=== PATIENT | male | born 1990 | race American Indian/Alaskan Native ===

== ENCOUNTER 2016-09-26 11:55 | Emergency (ER) | payer MEDICAID ==
[2016-09-26 12:20] VITALS: BP 133/86; PULSE 88; RESP 16; TEMP 99.1; O2SAT 100
--- NOTE | 2016-09-26 12:26 | ED PDOC ---
Arrival/HPI - General Chief Complaint: Male Genitourinary Time Seen by Provider: 09/26/16 12:15 Historian: Patient - History of Present Illness Narrative History of Present Illness (Text): 09/26/16 12:28 Elliott Castaneda is a 26 year old male who presents to the emergency department complaining of bleeding from superficial abrasion to the penis. Denies any pain to the area. Denies any pain/burning while urinating, discharge or testicular pain. Patient states he is not sexually active and has never had sex before in his entire life. He reports that this abrasion stops bleeding spontaneously but after he masturbates, it begins bleeding again. Denies any fever, chills, chest pain, or any other complaints at this time. Severity Level: Mild Activities at Onset: Light Past Medical History - Provider Review Nursing Documentation Reviewed: Yes - Neurological Hx Neurological Disorder: Yes Other/Comment: Brain Tumor - Hematological/Oncological Hx Cancer: Yes (Brain Tumor) Other/Comment: Brain tumor at age 12 - Psychiatric Hx Substance Use: No - Surgical History Other/Comment: Brain Tumor removal - Anesthesia Hx Anesthesia: Yes Family/Social History - Physician Review Nursing Documentation Reviewed: Yes Family/Social History: No Known Family HX Smoking Status: Never Smoked Hx Alcohol Use: No Hx Substance Use: No Allergies/Home Meds Allergies/Adverse Reactions: Allergies vincristine Allergy (Verified 09/26/16 12:10) RASH Home Medications: Home Meds Medication Instructions Recorded Confirmed No Known Home Med 09/26/16 09/26/16 Review of Systems - Physician Review All systems were reviewed & negative as marked: Yes - Review of Systems Constitutional: Normal. absent: Fatigue, Fevers Respiratory: Normal. absent: SOB, Cough Genitourinary Male: Other (superficial abrasion to penis ). absent: Dysuria, Frequency, Hematuria Neurological: Normal. absent: Headache, Dizziness Psychiatric: Normal Physical Exam - Physical Exam Narrative Physical Exam (Text): Constitutional: No acute distress. Head: Normocephalic. Atraumatic. Eyes: PERRL. ENT: Moist mucous membranes. Neck: Supple. Cardiovascular: Regular rate. Chest: No tenderness. Respiratory: Clear to auscultation bilaterally. GI: Soft. Nontender. Nondistended. Genitourinary: No testicular tenderness, no hernia, circumcised, no inguinal lymphadenopathy, superficial small wound to left meatus rim with no active bleeding. Back: No CVA tenderness. Musculoskeletal: No tenderness or swelling of extremities. Skin: No rash. Neurologic: Alert, no focal deficit. Vital Signs Reviewed: Yes Vital Signs Temp Pulse Resp BP Pulse Ox 09/26/16 12:20 99.1 F 88 16 133/86 100 Temperature: Afebrile Blood Pressure: Normal Pulse: Regular Respiratory Rate: Normal Appearance: Positive for: Well-Appearing, Non-Toxic, Comfortable Pain Distress: None Mental Status: Positive for: Alert and Oriented X 3 Medical Decision Making ED Course and Treatment: 09/26/16 12:35 Impression: A 26 year old male who presents to the emergency department complaining of bleeding from abrasion to penis. Progress Notes: Patient is stable for discharge. Advised to present to emergency department for new/worsening symptoms. - Scribe Statement The provider has reviewed the documentation as recorded by the Marcelleibe Jose Alberto Rueda Provider Scribe Attestation: All medical record entries made by the Scribe were at my direction and personally dictated by me. I have reviewed the chart and agree that the record accurately reflects my personal performance of the history, physical exam, medical decision making, and the department course for this patient. I have also personally directed, reviewed, and agree with the discharge instructions and disposition. Disposition/Present on Arrival - Present on Arrival Any Indicators Present on Arrival: No History of DVT/PE: No History of Uncontrolled Diabetes: No Urinary Catheter: No History of Decub. Ulcer: No History Surgical Site Infection Following: None - Disposition Have Diagnosis and Disposition been Completed?: Yes Diagnosis: Penis abrasion Disposition: HOME/ ROUTINE Disposition Time: 12:36 Condition: STABLE Discharge Instructions (ExitCare): Abrasion (ED)
== END 2016-09-26 12:32 | disposition home or self-care (01) ==
LOC: ED 11:55
DX: S30.812A Abrasion of penis, initial encounter (principal); X58.XXXA Exposure to other specified factors, initial encounter

== ENCOUNTER 2017-09-26 14:09 | Emergency (ER) | payer MEDICAID ==
--- NOTE | 2017-09-26 15:46 | ED PDOC ---
Arrival/HPI - General Historian: Patient - History of Present Illness Time/Duration: Other (2 days) Symptom Onset: Sudden Symptom Course: Unchanged Quality: Burning Severity Level: Mild - General Chief Complaint: Male Genitourinary Time Seen by Provider: 09/26/17 14:32 - History of Present Illness Narrative History of Present Illness (Text): 09/26/17 17:34 27yr old male presents today with a 2 day history of blister to the penis. Patient denies a history of unprotected sex. He is complaining of a burning sensation at the blister site. Patient states he also noticed an abrasion to the shaft of the penis. He denies penile discharge. He denies testicular pain. He denies fevers or chills. No medications have been taken for pain at home. He denies abdominal pain. No nausea or vomiting. Patient does admit to frequent masturbation. Patient denies any trauma or injury. Denies any urinary symptoms. No other complaints (Azoia,Ladi T) Past Medical History - Provider Review Nursing Documentation Reviewed: Yes - Travel History Have you recently traveled outside [place] w/in the past 3 mons?: No - Cardiac Hx Cardiac Disorders: No - Pulmonary Hx Respiratory Disorders: No - Neurological Hx Neurological Disorder: Yes Other/Comment: Brain Tumor - HEENT Hx HEENT Disorder: No - Renal Hx Renal Disorder: No - Endocrine/Metabolic Hx Endocrine Disorders: No - Hematological/Oncological Hx Blood Disorders: Yes Hx Cancer: Yes (Brain Tumor) Other/Comment: Brain tumor at age 12 - Integumentary Hx Dermatological Disorder: No - Musculoskeletal/Rheumatological Hx Musculoskeletal Disorders: Yes Hx Spinal Stenosis: Yes - Gastrointestinal Hx Gastrointestinal Disorders: No - Genitourinary/Gynecological Hx Genitourinary Disorders: No - Psychiatric Hx Psychophysiologic Disorder: No Hx Substance Use: No - Surgical History Other/Comment: Brain Tumor removal - Anesthesia Hx Anesthesia: Yes Family/Social History - Physician Review Nursing Documentation Reviewed: Yes Family/Social History: Unknown Family HX Smoking Status: Never Smoked Hx Alcohol Use: No Hx Substance Use: No Allergies/Home Meds Allergies/Adverse Reactions: Allergies vincristine Allergy (Verified 09/26/17 14:24) RASH Review of Systems - Review of Systems Constitutional: absent: Fatigue, Fevers Respiratory: absent: SOB, Cough Cardiovascular: absent: Chest Pain, Palpitations Gastrointestinal: absent: Abdominal Pain, Nausea, Vomiting Genitourinary Male: absent: Dysuria, Frequency, Hematuria Musculoskeletal: absent: Arthralgias, Back Pain Skin: Rash Neurological: absent: Headache, Dizziness Physical Exam Vital Signs Reviewed: Yes Temperature: Afebrile Blood Pressure: Normal Pulse: Regular Respiratory Rate: Normal Appearance: Positive for: Well-Appearing, Non-Toxic, Comfortable Pain Distress: None Mental Status: Positive for: Alert and Oriented X 3 - Systems Exam Head: Present: Atraumatic Respiratory/Chest: Present: Clear to Auscultation Cardiovascular: Present: Regular Rate and Rhythm Abdomen: No: Tenderness, Rebound, Guarding Genitourinary Male: Present: Circumcised Penis, Lesions (there is a tender dime sized lesion noted to the head of the penis and a small 1cm open blister to the shaft. no surrounding erythema or edema. ), Other (chaparoned by Marco Watters Patient advocate). No: Normal External Genitalia, Penile Discharge, Testicle Tenderness, Erythema Back: No: CVA Tenderness Upper Extremity: Present: Normal ROM Lower Extremity: Present: Normal ROM Neurological: Present: GCS=15, Speech Normal Skin: Present: Warm, Dry, Normal Color. No: Rashes Psychiatric: Present: Alert, Oriented x 3 Vital Signs Temp Pulse Resp BP Pulse Ox 09/26/17 16:24 98.1 F 79 16 135/61 98 09/26/17 16:09 75 18 131/65 100 09/26/17 14:24 99.3 F 79 16 135/61 98 Medical Decision Making ED Course and Treatment: 09/26/17 17:43 Patient nontoxic well-appearing in no distress with stable vital signs Patient found to have a tender dime-sized blister on the head of the penis as well as a small 1 cm open blistering on the shaft of the penis Patient was seen and evaluated by Dr. Jackson although patient denies unprotected sex we will send RPR and HSV and Gc/ Chlamydia i discussed plan with patient in depth; advised f/u with PMd and urologist. advised immediate return if symptoms worsen, persist or if new symptoms develop. Patient verbalizes understanding of discharge instructions and need for immediate followup. all aspects of this case were discussed the attending of record. Impression: Blister, penis keep wound clean and dry apply bacitracin twice daily increase fluids follow up with the primary care physician within the next 2 days return immediately if signs of infection develop; high fevers, increasing pain, redness, swelling or if any other concerning symptoms develop. (Ladi Goetz) - Lab Interpretations Lab Results: Lab Results 09/26/17 15:51: RPR Nonreactive Disposition/Present on Arrival - Present on Arrival Any Indicators Present on Arrival: No History of DVT/PE: No History of Uncontrolled Diabetes: No Urinary Catheter: No History of Decub. Ulcer: No History Surgical Site Infection Following: None - Disposition Have Diagnosis and Disposition been Completed?: Yes Disposition Time: 15:39 Patient Plan: Discharge - Disposition Diagnosis: Blister of penis without infection Disposition: HOME/ ROUTINE Condition: GOOD Discharge Instructions (ExitCare): Blisters Additional Instructions: keep wound clean and dry apply bacitracin twice daily increase fluids follow up with the primary care physician within the next 2 days return immediately if signs of infection develop; high fevers, increasing pain, redness, swelling or if any other concerning symptoms develop. DORETHA MELGAR, thank you for letting us take care of you today. Your provider was Ruben Jackson DO and you were treated for STI. The emergency medical care you received today was directed at your acute symptoms. If you were prescribed any medication, please fill it and take as directed. It may take several days for your symptoms to resolve. Return to the Emergency Department if your symptoms worsen, do not improve, or if you have any other problems. Please contact your doctor or call one of the physicians/clinics you have been referred to that are listed on the Patient Visit Information form that is included in your discharge packet. Bring any paperwork you were given at discharge with you along with any medications you are taking to your follow up visit. Our treatment cannot replace ongoing medical care by a primary care provider outside of the emergency department. Thank you for allowing the [facility] team to be part of your care today. If you had an X-Ray or CT scan: A Radiologist will review the ED reading if any change in treatment is needed we will contact you. If you had a blood, urine, or wound culture: It will take several days for the results, if any change in treatment is needed we will contact you. If you had an STI test: It will take 48 hours for the results. Please call after 1 week if you have not heard back. Prescriptions: Bacitracin OINT 1 applic TP BID #1 tube Referrals: Jihan Bello MD [Staff Provider] - Follow up with primary Xu Thomas MD [Staff Provider] - Follow up with primary Forms: [employer] (Romansh), WORK NOTE
[2017-09-26 16:25] VITALS: BP 135/61; PULSE 79; RESP 16; TEMP 98.1; O2SAT 98
== END 2017-09-26 16:24 | disposition home or self-care (01) ==
LOC: ED 14:09
DX: S30.822A Blister (nonthermal) of penis, initial encounter (principal); X58.XXXA Exposure to other specified factors, initial encounter; Y92.9 Unspecified place or not applicable

== ENCOUNTER 2018-01-01 01:54 | Emergency (ER) | payer MEDICAID ==
[2018-01-01 02:12] VITALS: BMI 20.7
[2018-01-01 02:13] VITALS: PULSE 81; RESP 18; O2SAT 99
--- NOTE | 2018-01-01 02:23 | ED PDOC ---
Arrival/HPI - General Chief Complaint: Bite Time Seen by Provider: 01/01/18 02:19 Historian: Patient - History of Present Illness Narrative History of Present Illness (Text): 01/01/18 02:23 Elliott Castaneda is a 27 year old male, with no significant past medical history, who presents to the ED complaining of dog bite to the left hand, between his 1st and 2nd digit. Patient states he was bitten on the hand by his personal dog, not es the dog's vaccinations are up to date. Patient reports his TDAP is not up to date. Patient denies any weakness/numbness/tingling in the extremity, other trauma/injury, or any other complaints. Time/Duration: Other (tonight) Symptom Onset: Sudden Symptom Course: Unchanged Activities at Onset: Light Context: Home Past Medical History - Provider Review Nursing Documentation Reviewed: Yes - Cardiac Hx Cardiac Disorders: No - Pulmonary Hx Respiratory Disorders: No - Neurological Hx Neurological Disorder: Yes Other/Comment: Brain Tumor - HEENT Hx HEENT Disorder: No - Renal Hx Renal Disorder: No - Endocrine/Metabolic Hx Endocrine Disorders: No - Hematological/Oncological Hx Blood Disorders: Yes Hx Cancer: Yes (Brain Tumor) Other/Comment: Brain tumor at age 12 - Integumentary Hx Dermatological Disorder: No - Musculoskeletal/Rheumatological Hx Musculoskeletal Disorders: Yes Hx Spinal Stenosis: Yes - Gastrointestinal Hx Gastrointestinal Disorders: No - Genitourinary/Gynecological Hx Genitourinary Disorders: No - Psychiatric Hx Psychophysiologic Disorder: No Hx Substance Use: No - Surgical History Other/Comment: Brain Tumor removal - Anesthesia Hx Anesthesia: Yes Family/Social History - Physician Review Nursing Documentation Reviewed: Yes Family/Social History: Unknown Family HX Smoking Status: Never Smoked Hx Alcohol Use: No Hx Substance Use: No Allergies/Home Meds Allergies/Adverse Reactions: Allergies vincristine Allergy (Verified 01/01/18 02:12) RASH Review of Systems - Physician Review All systems were reviewed & negative as marked: Yes - Review of Systems Constitutional: Normal. absent: Fevers Eyes: Normal ENT: Normal Respiratory: Normal. absent: SOB, Cough Cardiovascular: Normal. absent: Chest Pain Gastrointestinal: Normal. absent: Abdominal Pain, Diarrhea, Nausea, Vomiting Genitourinary Male: Normal. absent: Dysuria, Frequency, Hematuria, Urinary Output Changes Musculoskeletal: Normal. absent: Back Pain, Neck Pain Skin: Other (+left hand dog bite). absent: Rash Neurological: Normal. absent: Headache, Dizziness Endocrine: Normal Hemo/Lymphatic: Normal Psychiatric: Normal Physical Exam Vital Signs Reviewed: Yes Vital Signs Temp Pulse Resp BP Pulse Ox 01/01/18 02:13 98.9 F 81 18 130/92 H 99 Temperature: Afebrile Blood Pressure: Normal Pulse: Regular Respiratory Rate: Normal Appearance: Positive for: Well-Appearing, Non-Toxic, Comfortable Pain Distress: None Mental Status: Positive for: Alert and Oriented X 3 - Systems Exam Head: Present: Atraumatic, Normocephalic Pupils: Present: PERRL Extroacular Muscles: Present: EOMI Conjunctiva: Present: Normal Mouth: Present: Moist Mucous Membranes Neck: Present: Normal Range of Motion Respiratory/Chest: Present: Clear to Auscultation, Good Air Exchange. No: Respiratory Distress, Accessory Muscle Use Cardiovascular: Present: Regular Rate and Rhythm, Normal S1, S2. No: Murmurs Abdomen: No: Tenderness, Distention, Peritoneal Signs Back: Present: Normal Inspection Upper Extremity: Present: Normal ROM, NORMAL PULSES, Neurovascularly Intact, Capillary Refill < 2s, Other (Puncture wound to webspace of left hand). No: Cyanosis, Edema, Tenderness, Swelling, Erythema, Temperature Abnormalties, Deformity Lower Extremity: Present: Normal Inspection. No: Edema Neurological: Present: GCS=15, CN II-XII Intact, Speech Normal Skin: Present: Warm, Dry, Normal Color. No: Rashes Psychiatric: Present: Alert, Oriented x 3, Normal Insight, Normal Concentration Medical Decision Making ED Course and Treatment: 01/01/18 02:23 Impression: 27 year old male c/o a dog bite to the left hand. Plan: -- Augmentin -- TDAP --Reassess Progress Notes: - Scribe Statement The provider has reviewed the documentation as recorded by the Scribe Elaine Shabazz All medical record entries made by the Scribe were at my direction and personally dictated by me. I have reviewed the chart and agree that the record accurately reflects my personal performance of the history, physical exam, medical decision making, and the department course for this patient. I have also personally directed, reviewed, and agree with the discharge instructions and dis position. Disposition/Present on Arrival - Present on Arrival Any Indicators Present on Arrival: No History of DVT/PE: No History of Uncontrolled Diabetes: No Urinary Catheter: No History of Decub. Ulcer: No History Surgical Site Infection Following: None - Disposition Have Diagnosis and Disposition been Completed?: Yes Diagnosis: Dog bite of hand Disposition: HOME/ ROUTINE Disposition Time: 02:56 Patient Plan: Discharge Condition: GOOD Additional Instructions: Keep wound clean /apply bacitracin ointment/take antibiotics as prescribed/follow up with your doctor/any signs of infection return to the emergency room Prescriptions: Amoxicillin/Clavulanate [Augmentin 875 MG-125 MG] 1 tab PO BID #20 tab Bacitracin Ointment [Bacitracin] 30 gm TOP BID #30 tube Referrals: Jones Torrez MD [Primary Care Provider] - Follow up with primary Forms: [employer] (Slovak)
[2018-01-01] MEDS ORDERED: TDAP Vaccine 0.5 mL Syr IM ONE (02:26)
[2018-01-01] MEDS ORDERED: Amoxicillin-Clav 875-125 mg Tab PO STA (02:26)
[2018-01-01 04:24] VITALS: BP 128/86; TEMP 98.8
== END 2018-01-01 03:15 | disposition home or self-care (01) ==
LOC: ED 01:54
DX: S61.452A Open bite of left hand, initial encounter (principal); W54.0XXA Bitten by dog, initial encounter; Y92.9 Unspecified place or not applicable; Z23 Encounter for immunization

== ENCOUNTER 2018-03-26 18:23 | Emergency (ER) | payer MEDICAID ==
[2018-03-26 18:43] VITALS: BP 128/79; PULSE 65; RESP 18; TEMP 98.5
--- NOTE | 2018-03-26 20:05 | ED PDOC ---
Arrival/HPI - General Chief Complaint: Hip Pain Time Seen by Provider: 03/26/18 18:46 Historian: Patient - History of Present Illness Narrative History of Present Illness (Text): 03/26/18 20:12 27-year-old male presents today with right hip pain status post fall 2 nights ago. Patient states he tripped and fell landing on the right hip. Patient denies hitting his head. No loss of consciousness. Patient denies nausea vomiting di arrhea constipation. Denies any abdominal pain. He denies chest pain or shortness of breath. He denies neck or back pain. Patient states the majority of the pain is located in the right buttocks and hip. Patient states pain is worse with ambulation. Patient states he has slight residual weakness and decreased sensation in the right leg which is chronic. He denies any changes in numbness weakness or tingling in the right leg at present time. Patient states he took Motrin for pain at the time of incident but did not take any medicine today for pain. Past Medical History - Provider Review Nursing Documentation Reviewed: Yes - Travel History Have you recently traveled outside [place] w/in the past 3 mons?: No - Infectious Disease Hx of Infectious Diseases: None - Cardiac Hx Cardiac Disorders: No - Pulmonary Hx Respiratory Disorders: No - Neurological Hx Neurological Disorder: Yes Other/Comment: Brain Tumor - HEENT Hx HEENT Disorder: No - Renal Hx Renal Disorder: No - Endocrine/Metabolic Hx Endocrine Disorders: No - Hematological/Oncological Hx Blood Disorders: Yes Hx Cancer: Yes (Brain Tumor) Other/Comment: Brain tumor at age 12 - Integumentary Hx Dermatological Disorder: No - Musculoskeletal/Rheumatological Hx Musculoskeletal Disorders: Yes Hx Spinal Stenosis: Yes - Gastrointestinal Hx Gastrointestinal Disorders: No - Genitourinary/Gynecological Hx Genitourinary Disorders: No - Psychiatric Hx Psychophysiologic Disorder: No Hx Substance Use: No - Surgical History Other/Comment: Brain Tumor removal - Anesthesia Hx Anesthesia: Yes Family/Social History - Physician Review Nursing Documentation Reviewed: Yes Family/Social History: Unknown Family HX Smoking Status: Never Smoked Hx Alcohol Use: Yes Frequency of alcohol use: Socially Hx Substance Use: No Allergies/Home Meds Allergies/Adverse Reactions: Allergies vincristine Allergy (Verified 03/26/18 18:43) RASH Review of Systems - Review of Systems Constitutional: absent: Fatigue, Fevers Respiratory: absent: SOB, Cough Cardiovascular: absent: Chest Pain, Palpitations Gastrointestinal: absent: Abdominal Pain, Nausea, Vomiting Musculoskeletal: Arthralgias (right hip pain) Skin: absent: Rash, Pruritis Neurological: absent: Headache, Dizziness Psychiatric: absent: Anxiety, Depression Physical Exam Vital Signs Reviewed: Yes Vital Signs Temp Pulse Resp BP Pulse Ox 03/26/18 18:43 98.5 F 65 18 128/79 99 Temperature: Afebrile Blood Pressure: Normal Pulse: Regular Respiratory Rate: Normal Appearance: Positive for: Well-Appearing, Non-Toxic, Comfortable Pain Distress: None Mental Status: Positive for: Alert and Oriented X 3 - Systems Exam Head: Present: Atraumatic Mouth: Present: Moist Mucous Membranes Neck: Present: Normal Range of Motion, Trachea Midline. No: MIDLINE TENDERNESS, Paraspinal Tenderness Respiratory/Chest: Present: Clear to Auscultation, Good Air Exchange. No: Respiratory Distress, Accessory Muscle Use Cardiovascular: Present: Regular Rate and Rhythm Abdomen: No: Tenderness, Distention, Rebound, Guarding Back: Present: Normal Inspection. No: CVA Tenderness, Midline Tenderness, Paraspinal Tenderness Upper Extremity: Present: Other (right wrist drop (chronic)) Lower Extremity: Present: Normal Inspection, NORMAL PULSES, Normal ROM, Tenderness (right hip; + ttp over posterior hip, + ttp over right buttock; no edema, no erythema, no edema, no ecchymosis. ), Neurovascularly Intact, Capillary Refill < 2 s. No: CALF TENDERNESS, Swelling, Erythema, Deformity Neurological: Present: GCS=15, Speech Normal Skin: Present: Warm, Dry Psychiatric: Present: Alert, Oriented x 3 Medical Decision Making ED Course and Treatment: 03/26/18 20:24 Patient nontoxic well-appearing in no distress with stable vital signs X-rays of the right hip: no fracture toradol IM pt ambulating with steady gait. no distress. I discussed all results in depth with the patient advised to followup with the orthopedist within the next 2 days. Return if symptoms worsen persist or new symptoms develop Patient verbalizes understanding of discharge instructions and need for immediate followup. all aspects of this case were discussed the attending of record. Impression: hip pain, contusion Motrin every 6 hours as needed for pain Rest, ice, compression, elevation Followup with the orthopedist within the next 2 days Followup with primary care physician within the next 2 days Return if symptoms worsen persist or if new symptoms develop Reassessment Condition: Re-examined, Improved - RAD Interpretation Radiology Orders: 03/26/18 19:41 Hip Right [HIP MIN 2V W/ PELVIS RT] [RAD] Stat - Medication Orders Current Medication Orders: Discontinued Medications Ketorolac Tromethamine (Toradol) 60 mg IM STAT STA Stop: 03/26/18 19:42 Last Admin: 03/26/18 19:53 Dose: 60 mg MAR Pain Assessment Document 03/26/18 19:53 SS (Rec: 03/26/18 19:55 SS [facility] Pain Reassessment Is this a pain reassessment? No Sleep Is patient sleeping during reassessment? No Presence of Pain Presence of Pain Yes IM Administration Charges Document 03/26/18 19:53 SS (Rec: 03/26/18 19:55 SS [facility] Charges for Administration # of IM Administrations 1 Disposition/Present on Arrival - Present on Arrival Any Indicators Present on Arrival: No History of DVT/PE: No History of Uncontrolled Diabetes: No Urinary Catheter: No History of Decub. Ulcer: No History Surgical Site Infection Following: None - Disposition Have Diagnosis and Disposition been Completed?: Yes Diagnosis: Hip pain Disposition: HOME/ ROUTINE Disposition Time: 20:05 Patient Plan: Discharge Patient Problems: Current Active Problems Problem Status Onset Hip pain Acute Condition: GOOD Discharge Instructions (ExitCare): Hip Pain (DC) Additional Instructions: Motrin every 6 hours as needed for pain Rest, ice, compression, elevation Followup with the orthopedist within the next 2 days Followup with primary care physician within the next 2 days Return if symptoms worsen persist or if new symptoms develop Prescriptions: Ibuprofen [Motrin] 600 mg PO Q6H PRN #20 tab PRN Reason: pain/fever reduction Referrals: Jones Torrez MD [Primary Care Provider] - Follow up with primary Henry Cooper DO [Staff Provider] - Follow up with primary [facility] [place] [Outside] - Follow up with primary [facility] [Outside] - Follow up with primary Forms: [employer] (Cypriot), WORK NOTE
[2018-03-26 22:02] VITALS: O2SAT 98
--- NOTE | 2018-03-27 10:24 | RAD ---
Date of service: 03/26/2018 PROCEDURE: Pelvis and right hip HISTORY: hip pain COMPARISON: TECHNIQUE: Three views FINDINGS: There is no evidence of fracture. There is no significant joint space narrowing. IMPRESSION: Negative study
== END 2018-03-26 22:00 | disposition home or self-care (01) ==
LOC: ED 18:23
DX: M25.551 Pain in right hip (principal)
CPT/HCPCS: 73502; 96372; 99283; J1885